=== PATIENT | female | born 1995 | race American Indian/Alaskan Native ===

== ENCOUNTER 2018-12-05 17:09 | Emergency (ER) | payer OTHER ==
[2018-12-05 17:32] VITALS: BP 131/67
[2018-12-05 17:52] LABS: Bilirubin,Urine NEG (Negative); Blood,Urine SM (Negative); Color,Urine Yellow (Yellow); Mucus,Urine FEW /HPF; Protein,Urine <15 mg/dL mg/dL (Negative)
[2018-12-05 17:54] LABS: HCG Qualitative,Urine Negative (Negative)
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
[2018-12-05] MEDS ORDERED: IBUPROFEN PO ONE (18:51)
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
== END 2018-12-05 21:30 | disposition home or self-care (01) ==
LOC: EDBD → ED 17:09
DX: S16.1XXA Strain of muscle, fascia and tendon at neck level, initial encounter (principal); M25.512 Pain in left shoulder; V49.49XA Driver injured in collision with other motor vehicles in traffic accident, initial encounter; Y93.89 Activity, other specified; Y92.488 Other paved roadways as the place of occurrence of the external cause; Y99.8 Other external cause status
CPT/HCPCS: 81001; 81025